=== PATIENT | female | born 1955 | race Asian ===

== ENCOUNTER 2017-08-22 22:15 | Observation (INO) ==
[2017-08-22] MEDS ORDERED: 0.9 % Sodium Chloride 1,000 ML IVC ONE ×2 (22:26→22:31)
[2017-08-22] MEDS ORDERED: Ondansetron 4 MG/2 ML VIAL IVP ONE (22:26)
[2017-08-22] MEDS ORDERED: Isovue-370 500 ML INFUS..BTL IV ONE (22:30)
--- NOTE | 2017-08-22 22:30 | Emergency Department Note ---
Disposition Clinical Impression: ARNULFO (acute kidney injury), Dehydration Syncope Qualifiers: Syncope type: unspecified Qualified Code(s): R55 - Syncope and collapse Nausea and vomiting Qualifiers: Vomiting type: unspecified Vomiting Intractability: non-intractable Qualified Code(s): R11.2 - Nausea with vomiting, unspecified Disposition: Admitted As Inpatient Condition: Undetermined Time of Disposition: 00:52 Syncope HPI - General Chief Complaint: ED Syncope Stated Complaint: vomiting,syncope Time Seen by Provider: 08/22/17 22:22 Source: patient Mode of arrival: ambulatory Limitations: no limitations Nursing Notes Reviewed: Yes Vital Signs Reviewed: Yes - History of Present Illness HPI Narrative: 62-year-old female with history of hypertension, hyperlipidemia, degenerative disc disease and history of hysterectomy, arrives to the emergency department with abdominal cramping, vomiting times multiple episodes after dinner and 3 separate syncopal episodes. The patient was brought in by family members. The patient is alert and oriented 3 upon arrival to the emergency department but she is noted to be hypotensive with a blood pressure of 88/55. The patient states she has never experience shaking like this in the past. Patient denies any diarrhea, hematochezia, melena, hematemesis. She denies any chest pain or difficulty breathing. He should states they are her abdominal cramping is diffuse without any specific location. The patient is diaphoretic upon arrival to the emergency department. She denies any other complaints at this time including fevers, chills, unilateral weakness. - Related Data Home Medications Medication Instructions Recorded Confirmed Lisinopril-HCTZ 10-12.5 [Prinzide 1 each PO DAILY 08/23/17 08/23/17 10-12.5] Pregabalin [Lyrica] 100 mg PO DAILY 08/23/17 08/23/17 Simvastatin [Zocor] 40 mg PO HS 08/23/17 08/23/17 Allergies Allergy/AdvReac Type Severity Reaction Status Date / Time No Known Allergies Allergy Verified 08/22/17 22:20 All systems ED: reviewed and negative except as stated. Constitutional: Reports: weakness. Denies: fever, chills ENT ED: Denies: congestion Cardiovascular: Reports: syncope. Denies: chest pain Respiratory: Denies: dyspnea Gastrointestinal: Reports: abdominal pain, nausea, vomiting. Denies: diarrhea, constipation, hematemesis, melena, hematochezia Genitourinary: Denies: urgency, dysuria Musculoskeletal: Denies: back pain, neck pain Integumentary: Denies: rash Neurological: Reports: weakness. Denies: headache, numbness, paresthesias, confusion, abnormal gait, vertigo Past Medical History - Past Medical History Attestation: Yes The following information was validated with the patient. 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 - Social History Smoking Status: Current every day smoker Smokeless Tobacco Status: No Alcohol use: Reports: none Drug use: Reports: none Physical Exam - General Limitations: no limitations General appearance: alert, in no apparent distress, other (diaphoretic) - Head Head exam: atraumatic, normocephalic, normal inspection - Eye Eye exam: Present: normal appearance, PERRL, EOMI - ENT ENT exam: normal exam, normal oropharynx, mucous membranes moist - Neck Neck exam: Present: normal inspection, full ROM, trachea midline - Chest Chest inspection: Present: normal inspection, symmetric chest wall rise - Respiratory Respiratory exam: Present: normal lung sounds bilaterally - Cardiovascular Cardiovascular exam: Present: regular rate, normal rhythm, normal heart sounds - Abdominal Exam Abdominal exam: Present: soft, tenderness (Diffuse), scar. Absent: distention, guarding, rebound, rigidity, psoas sign, obturator sign, Ingram's sign, Rovsing' s sign, tenderness at McBurney's Point, pulsatile mass Abdominal tenderness: Present: diffuse, moderate - Extremities Exam Extremities exam: Present: normal inspection, full ROM. Absent: tenderness, pedal edema - Neurological Exam Neurological exam: Present: alert, oriented X3 - Skin Skin exam: Present: warm, dry, intact, normal color Course Vital Signs Temperature 97.3 F L 08/22/17 22:18 Pulse Rate 64 08/22/17 22:18 Respiratory Rate 18 08/22/17 22:18 Blood Pressure 88/55 08/22/17 22:18 O2 Sat by Pulse Oximetry 99 08/22/17 22:18 Temperature 97.7 F 08/23/17 03:19 Pulse Rate 64 08/23/17 03:19 Respiratory Rate 16 08/23/17 01:29 Blood Pressure 94/59 08/23/17 03:19 O2 Sat by Pulse Oximetry 16 08/23/17 03:19 Oxygen Delivery Oxygen Delivery Room Air Procedures - Ultrasound-Other Narrative: Subxiphoid ultrasound of cardiac window was visualized. Small pericardial effusion noted. The cardiac movement was noted. Syncope - MDM Narrative Medical decision making narrative: Patient's workup in the emergency department demonstrates an acute kidney injury as well as elevated lactic acid. The patient is mildly hypotensive but her maps have been in the 70s. She is mentating appropriately. No sign of meningismus. The patient has no signs of urinary tract infection, chest x-ray is clear as well as CT scan of the abdomen and pelvis demonstrated no acute process. Patient has a leukocytosis noted on lab work as well. The patient states she is feeling better after receiving 1.5 L of IV fluids. Given the patient's continued mild hypotension combined with still feeling ill, we will admit the patient to the hospital at this time for further IV hydration and workup. Patient made aware and agrees to plan. In addition the patient does meet SIRS criteria but without a source this patient does not meet sepsis criteria and therefore we will not start antibiotics at this time. Accepted by Dr. Sandoval. - Lab Data Lab results reviewed: Yes I reviewed the patient's lab results. Result diagrams: 08/23/17 02:00 08/23/17 02:00 Lab Results 08/22/17 08/22/17 08/22/17 Range/Units 22:48 22:48 22:48 WBC 20.2 H (4.3-11.1) K/mcL RBC 4.68 (3.82-4.97) M/mcL Hgb 13.9 (11.5-15.4) g/dL Hct 41.9 (35.3-44.9) % MCV 89.5 (83.0-100.0) fL MCH 29.7 (28.0-33.3) pg MCHC 33.2 (31.6-35.5) g/dL RDW 14.6 H (11.5-14.5) % Plt Count 318 (140-400) K/mcL MPV 9.0 L (9.4-12.4) fL Immature Gran % 0.6 (0-4) % Seg Neutrophils % 79.4 % Lymphocytes % 13.7 % Monocytes % 5.5 % Eosinophils % 0.7 % Basophils % 0.1 % Neutrophils # 16.0 H (1.6-8.9) K/mcL Lymphocytes # 2.8 (0.6-4.6) K/mcL Monocytes # 1.1 (0.0-1.3) K/mcL Eosinophils # 0.2 (0.0-0.6) K/mcL Basophils # 0.0 (0.0-0.2) K/mcL Sodium 135 L (136-145) mEq/L Potassium 4.6 (3.5-5.1) mEq/L Chloride 98 (98-107) mEq/L Carbon Dioxide 27 (23-29) mEq/L BUN 41 H (8-23) mg/dL Creatinine 2.17 H (0.60-1.20) mg/dL Est GFR ( Amer) 28 L (> 60) Est GFR (Non-Af Amer) 23 L (> 60) BUN/Creatinine Ratio 19 (6-26) Glucose 153 H (70-105) mg/dL Calculated Osmolality 293 (280-300) Lactic Acid (0.5-2.2) mmol/L Calcium 9.5 (8.6-10.3) mg/dL Total Bilirubin 0.3 (0.3-1.0) mg/dL Direct Bilirubin 0.1 (0.0-0.2) mg/dL Indirect Bilirubin 0.2 (0.0-1.2) mg/dL AST 18 (13-39) Units/L ALT 14 (7-52) Units/L Alkaline Phosphatase 92 (34-104) Units/L Troponin I < 0.03 (< 0.04) ng/mL Serum Total Protein 7.0 (6.4-8.9) g/dL Albumin 4.2 (3.5-5.7) g/dL Globulin 2.8 (2.4-3.5) g/dL Albumin/Globulin Ratio 1.5 (1.1-2.2) Lipase 17 (11-82) Units/L Urine Color (Yellow) Urine Clarity (Clear) Urine pH (5.0-8.0) pH Units Ur Specific [place] (1.010-1.025) Urine Protein (Neg-Trace) mg/dL Urine Glucose (UA) (Normal) mg/dL Urine Ketones (Negative) mg/dL Urine Blood (Negative) Urine Nitrite (Negative) Urine Bilirubin (Negative) Urine Urobilinogen (Normal) mg/dL Ur Leukocyte Esterase (Negative) Urine Microscopic RBC (0-3) per hpf Urine Microscopic WBC (0-3) per hpf Ur Squamous Epith Cells (None-Few) per lpf Calcium Oxalate Crystal Urine Bacteria (None-Few) per hpf Hyaline Casts (None-Few) per lpf Ur Culture Indicated? (NO) 08/22/17 08/23/17 Range/Units 22:48 00:09 WBC (4.3-11.1) K/mcL RBC (3.82-4.97) M/mcL Hgb (11.5-15.4) g/dL Hct (35.3-44.9) % MCV (83.0-100.0) fL MCH (28.0-33.3) pg MCHC (31.6-35.5) g/dL RDW (11.5-14.5) % Plt Count (140-400) K/mcL MPV (9.4-12.4) fL Immature Gran % (0-4) % Seg Neutrophils % % Lymphocytes % % Monocytes % % Eosinophils % % Basophils % % Neutrophils # (1.6-8.9) K/mcL Lymphocytes # (0.6-4.6) K/mcL Monocytes # (0.0-1.3) K/mcL Eosinophils # (0.0-0.6) K/mcL Basophils # (0.0-0.2) K/mcL Sodium (136-145) mEq/L Potassium (3.5-5.1) mEq/L Chloride (98-107) mEq/L Carbon Dioxide (23-29) mEq/L BUN (8-23) mg/dL Creatinine (0.60-1.20) mg/dL Est GFR ( Amer) (> 60) Est GFR (Non-Af Amer) (> 60) BUN/Creatinine Ratio (6-26) Glucose (70-105) mg/dL Calculated Osmolality (280-300) Lactic Acid 2.6 H (0.5-2.2) mmol/L Calcium (8.6-10.3) mg/dL Total Bilirubin (0.3-1.0) mg/dL Direct Bilirubin (0.0-0.2) mg/dL Indirect Bilirubin (0.0-1.2) mg/dL AST (13-39) Units/L ALT (7-52) Units/L Alkaline Phosphatase (34-104) Units/L Troponin I (< 0.04) ng/mL Serum Total Protein (6.4-8.9) g/dL Albumin (3.5-5.7) g/dL Globulin (2.4-3.5) g/dL Albumin/Globulin Ratio (1.1-2.2) Lipase (11-82) Units/L Urine Color Yellow (Yellow) Urine Clarity Cloudy A (Clear) Urine pH 5.5 (5.0-8.0) pH Units Ur Specific [place] 1.022 (1.010-1.025) Urine Protein Trace (Neg-Trace) mg/dL Urine Glucose (UA) Normal (Normal) mg/dL Urine Ketones Negative (Negative) mg/dL Urine Blood Negative (Negative) Urine Nitrite Negative (Negative) Urine Bilirubin Small H (Negative) Urine Urobilinogen Normal (Normal) mg/dL Ur Leukocyte Esterase Negative (Negative) Urine Microscopic RBC 0-3 (0-3) per hpf Urine Microscopic WBC 5-15 H (0-3) per hpf Ur Squamous Epith Cells Many H (None-Few) per lpf Calcium Oxalate Crystal Present Urine Bacteria Few (None-Few) per hpf Hyaline Casts Many H (None-Few) per lpf Ur Culture Indicated? NO (NO) - Radiology Data Radiology results reviewed: Yes I reviewed the patient's radiology results. Abdomen/Pelvis CT 08/22/17 22:30 IMPRESSION: No acute abnormality detected. D/ / Ihsan Mcclellan MD / Ihsan Mcclellan MD Interpreting Provider: Ihsan Mcclellan MD Chest X-Ray 08/22/17 22:34 IMPRESSION: No acute disease. D/ / Milton Staples MD / Milton Staples MD Interpreting Provider: Milton Staples MD - EKG Data EKG attestation: Yes I reviewed and interpreted this EKG. EKG results narrative: Heart rate 55 beats for minute. Sinus bradycardia. No ST elevation or ST depression noted. New bradycardia noted but there is some nonspecific ST changes and T wave changes that are different from EKG from 02/18/2014. No other acute changes noted. Attestation Statement - Attestation Attestation: I examined this patient and my medical decision-making was reviewed with the Resident Physician. I agree with the documented findings, disposition and treatment plan as described except to the extent set forth below. Findings consistent with SIRS. I do suspect some degree of dehydration. There is no infectious source at this time. I would obtain cultures in the event her symptoms represent early infection. Plans to admit with IV fluids, discussed case with hospitalist team.
[2017-08-22 23:12] LABS: Basophils % 0.1 %; Eosinophils # 0.2 K/mcL (0.0-0.6); Eosinophils % 0.7 %; Hematocrit 41.9 % (35.3-44.9); Hemoglobin 13.9 g/dL (11.5-15.4); Immature Granulocytes % 0.6 % (0-4); Lymphocytes # 2.8 K/mcL (0.6-4.6); Lymphocytes % 13.7 %; Mean Corpuscular HGB Conc 33.2 g/dL (31.6-35.5); Mean Corpuscular Hemoglobin 29.7 pg (28.0-33.3); Mean Corpuscular Volume 89.5 fL (83.0-100.0); Monocytes # 1.1 K/mcL (0.0-1.3); Monocytes % 5.5 %; Platelet Count 318 K/mcL (140-400); Red Blood Count 4.68 M/mcL (3.82-4.97); Red Cell Distribution Width 14.6 % (11.5-14.5); Segmented Neutrophils % 79.4 %
[2017-08-22 23:25] LABS: Albumin 4.2 g/dL (3.5-5.7); Albumin/Globulin Ratio 1.5 (1.1-2.2); Bilirubin,Direct 0.1 mg/dL (0.0-0.2); Bilirubin,Indirect 0.2 mg/dL (0.0-1.2); Bilirubin,Total 0.3 mg/dL (0.3-1.0); Globulin 2.8 g/dL (2.4-3.5)
[2017-08-22 23:27] LABS: BUN/Creatinine Ratio 19 (6-26); Blood Urea Nitrogen 41 mg/dL (8-23); Calcium 9.5 mg/dL (8.6-10.3); Carbon Dioxide 27 mEq/L (23-29); Chloride 98 mEq/L (98-107); Glucose 153 mg/dL (70-105); Lipase 17 Units/L (11-82); Osmolality,Calculated 293 (280-300); Potassium 4.6 mEq/L (3.5-5.1); Sodium 135 mEq/L (136-145); eGFR For African Americans 28 (> 60); eGFR For Non-African Americans 23 (> 60)
[2017-08-22 23:28] LABS: Troponin I < 0.03 ng/mL (< 0.04)
[2017-08-23 00:30] LABS: Bilirubin,Urine Small (Negative); Blood,Urine Negative (Negative); Clarity,Urine Cloudy (Clear); Color,Urine Yellow (Yellow); Glucose,Urine (UA) Normal (Normal); Ketones,Urine Negative (Negative); Leukocyte Esterase,Urine Negative (Negative); Nitrite,Urine Negative (Negative); PH,Urine 5.5 pH Units (5.0-8.0); Protein,Urine Trace mg/dL (Neg-Trace); Specific Gravity,Urine 1.022 (1.010-1.025); Urobilinogen,Urine Normal (Normal)
[2017-08-23 00:33] LABS: Bacteria,Urine Few per hpf (None-Few); RBC,Urine 0-3 per hpf (0-3); Squamous Epithelial Cell,Urine Many per lpf (None-Few)
[2017-08-23 00:42] LABS: Hyaline Casts,Urine Many per lpf (None-Few)
[2017-08-23 00:43] LABS: Calcium Oxalate Crystals,Urine Present
--- NOTE | 2017-08-23 01:14 | Internal Med History&Physical ---
Date of Encounter: 08/23/17 Time of Encounter: 01:13 Internal Medicine - H&P: HPI Plans for Post Hospital Care: Home History of present illness: Ms. Rodriguez is a 62 year old female with PMH of HTN, HLD, degenerative disc disease, arthritis who presents to the emergency department for abdominal cramping, vomiting, and 3 syncopal episodes. Patient's abdomen began cramping this morning after breakfast. Abdominal cramping described as diffuse and occurring intermittently; nothing makes the abdominal cramping worse. Her vomiting began after eating dinner at 19:00; she had 3-4 episodes of "more" emesis. No bright red blood or coffee-ground appearance to the emesis. No other family members became sick after eating the same dinner. Patient blacked out 3 times, these episodes were witnessed by her who is not in the room at the time of my interview. She denies unilateral weakness, slurred speech, facial droop before passing out. Patient admits to alternating fevers/ chills x 1 day, one episode of watery "orange" diarrhea yesterday, and muscle spasm-like sensation in left chest that resolved on its own. Patient denies experiencing night sweats, diaphoresis, shortness of breath, coughing, wheezing , dysuria, hematuria, pyuria. When patient arrived in the ED she was hypotensive with BP 88/55, diaphoretic, afebrile. Initial workup in the ED included lab work notable for WBC 20.2, BUN 41, creatinine 2.17, lactic acid 2.6, troponin < 0.03, liver enzymes WNL. Urinalysis not suggestive of infection. CXR showed no acute findings. CT abdomen/pelvis noncontrast showed no acute abnormalities. In the emergency department she received 2 normal saline boluses. Patient admitted to hospitalist service for further care in correcting her dehydration and monitoring renal function. Past Med Surg Social Fam HX - Past Medical History Medical history: hyperlipidemia, hypertension Psychiatric history: no psych history - Past Surgical History Surgical History: hysterectomy - Social History Smoking Status: Current every day smoker Smokeless Tobacco Status: No Alcohol use: none Drug use: none - Family History Mother History Unknown: Yes Adopted: [place]: karine Age: 82 Family Member Ethnicity: Living Status: Still Living Hx Family Cardiac Disorders: Yes Hx Family Respiratory Disorders: No Hx Family Cancer: Yes Hx Family GI Disorders: No Hx Family Genitourinary Disorders: (incontinence) Hx Family Endocrine Disorder: No Hx Family Musculoskeletal Disorders: No Hx Family Neuromuscular Disorders: No Hx Family Neurologic Disorders: No Hx Family HEENT Disorders: No Hx Family Autoimmune Disorders: No Hx Family Reproductive Disorders: No Hx Family Psychosocial Disorders: No Hx Family Medical Disorders: No Internal Medicine - H&P: Meds Lisinopril-HCTZ 10-12.5 [Prinzide 10-12.5] 1 each PO DAILY 08/23/17 [History] Pregabalin [Lyrica] 150 mg PO TID 08/23/17 [History] Simvastatin [Zocor] 40 mg PO HS 08/23/17 [History] 3 Allergy/AdvReac Type Severity Reaction Status Date / Time No Known Allergies Allergy Verified 08/23/17 08:49 All Systems PM: A 10-system review of systems was performed and is negative for pertinent findings except as documented above in the HPI. - Constitutional Constitutional: as per HPI - EENT Eyes: blurry vision (before syncope, now resolved) - Cardiovascular Cardiovascular ROS IM: no chest pain, no dyspnea, no edema - Respiratory Respiratory: as per HPI, no cough, no wheezing - Gastrointestinal Gastrointestinal: as per HPI, nausea - Genitourinary Genitourinary: no difficulty urinating, no dysuria, no hematuria - Musculoskeletal Musculoskeletal ROS IM: as per HPI, back pain (Chronic, degenerative disc disease) - Neurological Neurological ROS: as per HPI, other (Lightheadedness), no abnormal speech, no behavioral changes, no dizziness, no focal weakness, no headache(s), no loss of vision - Constitutional Vitals: Temp Pulse Resp BP Pulse Ox 97.3 F L 61 18 97/55 93 08/23/17 00:21 08/23/17 00:40 08/23/17 01:09 08/23/17 01:09 08/23/17 00:40 General appearance: Present: A&O X 3, no acute distress, obese, answers questions appropriately - Head Head exam: Present: atraumatic, normal inspection, normocephalic - Eye Eye exam: Present: normal appearance, PERRL Pupils: Present: PERRL - Neck Neck exam general surgery: Present: supple, trachea midline - Respiratory Respiratory exam: Present: CTAB. Absent: rales, respiratory distress, rhonchi, wheezes - Cardiovascular Cardiovascular exam: Present: bradycardia (Regular rhythm), +S1, +S2 - GI/Abdominal GI/Abdominal exam: Present: normal bowel sounds, soft. Absent: distended, guarding, mass, rebound, rigid, tenderness - Extremities Exam Extremities exam: Present: normal inspection. Absent: calf tenderness, cyanotic , pedal edema, tenderness - Neurological Exam Neurological exam: Present: alert, CN II-XII intact, oriented X3, no focal deficits. Absent: facial droop, speech deficit Additional comments: Moves all extremities spontaneously - Psychiatric Psychiatric exam: Present: normal affect, normal mood - Skin Skin exam: Present: dry, warm. Absent: cyanosis, diaphoretic Internal Med - H&P Results - Labs CBC & Chem 7: 08/23/17 02:00 08/23/17 02:00 - Assessment and plan (1) SIRS (systemic inflammatory response syndrome) Current Visit: Yes Status: Acute Assessment and plan: SIRS criteria met on admission: lactic acid 2.7 and WBC 17.7 Criteria for sepsis not fulfilled because there is no source of infection: CXR negative for acute disease, no signs of UTI on urinalysis, CT abdomen/pelvis negative for acute abnormality Plan: Supportive care with isotonic IV fluids Trend WBC count Repeat lactic acid (2) ARNULFO (acute kidney injury) Current Visit: Yes Status: Acute Assessment and plan: Most likely pre-renal etiology in the setting of dehydration d/t nausea and vomiting; pt still producing urine Creatinine on admission of 2.17 Difficult to establish baseline creatinine, last measured in 2013 at 0.76 Plan: Continue isotonic IV fluids Trend renal function on BMP's Hold lisinopril-HCTZ for now while pt is hypotensive (3) Syncope Current Visit: Yes Status: Acute Assessment and plan: Vasovagal syncope d/t dehydration in setting of nausea and vomiting Plan: Continue supportive care with isotonic IV fluids Qualifiers: Syncope type: vasovagal syncope Qualified Code(s): R55 - Syncope and collapse (4) Dehydration Current Visit: Yes Status: Acute Assessment and plan: Due to volume loss in the setting of nausea and vomiting Plan: Supportive care with IV isotonic saline (5) Nausea and vomiting Current Visit: Yes Status: Acute Assessment and plan: Improved Plan: Sublingual zofran PRN NPO for now d/t vomiting Supportive care Qualifiers: Vomiting type: unspecified Vomiting Intractability: non-intractable Qualified Code(s): R11.2 - Nausea with vomiting, unspecified (6) Elevated lactic acid level Current Visit: Yes Status: Acute Assessment and plan: Lactic acid on admission of 2.6 Consistent with dehydration Expect this level will improve as kidney function recovers and as dehydration is corrected Plan: Recheck with next lab draw (7) Abdominal cramping, generalized Current Visit: Yes Status: Resolved (8) Hypertension Current Visit: No Status: Acute Assessment and plan: Hx of HTN managed with lisinopril-HCTZ at home Pt has been hypotensive this admission Plan: Hold home med Qualifiers: Hypertension type: unspecified Qualified Code(s): I10 - Essential (primary ) hypertension (9) Leukocytosis Current Visit: Yes Status: Acute Assessment and plan: Present on admission, WBC 20.2 Most likely reactive in nature No infectious source at this time--no evidence of UTI, CXR and CT abdomen pelvis negative for acute abnormalities Plan: Trend with CBC's Qualifiers: Leukocytosis type: unspecified Qualified Code(s): D72.829 - Elevated white blood cell count, unspecified (10) Hyperlipidemia Current Visit: Yes Status: Acute Assessment and plan: Continue home med simvastatin Qualifiers: Hyperlipidemia type: unspecified Qualified Code(s): E78.5 - Hyperlipidemia , unspecified (11) DVT prophylaxis Current Visit: Yes Status: Acute Assessment and plan: heparin 5,000 units subQ Q12H - Time Spent With Patient Total time spent is greater than 50% in coordination of care (as documented) at patient's floor/unit and/or counseling patient:
[2017-08-23 02:15] LABS: Basophils % 0.2 %; Eosinophils % 0.1 %; Immature Granulocytes % 0.5 % (0-4); Lymphocytes # 1.4 K/mcL (0.6-4.6); Lymphocytes % 7.7 %; Mean Corpuscular HGB Conc 33.3 g/dL (31.6-35.5); Mean Corpuscular Hemoglobin 29.7 pg (28.0-33.3); Monocytes # 0.7 K/mcL (0.0-1.3); Monocytes % 4.1 %; Neutrophils # 15.5 K/mcL (1.6-8.9); Platelet Count 266 K/mcL (140-400); Red Blood Count 4.38 M/mcL (3.82-4.97); Red Cell Distribution Width 14.6 % (11.5-14.5); Segmented Neutrophils % 87.4 %
[2017-08-23 02:34] LABS: Calcium 8.7 mg/dL (8.6-10.3); Potassium 4.1 mEq/L (3.5-5.1)
[2017-08-23] MEDS ORDERED: Ondansetron ODT 4 MG TAB.RAPDIS SL PRN (03:21)
[2017-08-23] MEDS ORDERED: 0.9 % Sodium Chloride 1,000 ML IVC SCH (03:30)
[2017-08-23] MEDS: *HR* Heparin 5,000 UNIT/ML VIAL SQ SCH ×2 (06:11→17:23)
[2017-08-23] MEDS ORDERED: Pantoprazole 40 MG VIAL IVP SCH (06:30)
[2017-08-23] MEDS: 0.9 % Sodium Chloride 1,000 ML IVC SCH ×2 (14:27→20:59)
[2017-08-23] MEDS ORDERED: Pregabalin 75 MG CAPSULE PO SCH (15:00)
--- NOTE | 2017-08-23 16:41 | Electrocardiograph Report ---
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
--- NOTE | 2017-08-23 17:52 | Event Note ---
Date of Encounter: 08/23/17 Time of Encounter: 17:07 S: Patient had no acute events since admission. She states that abdominal pain is greatly improved. No more nausea or vomiting. She denies any further syncopal episodes. She is tolerating diet without issues. She denies fever, chills, chest pain, and SOB. She has no complaints at this time. O: Gen - Awake, alert, oriented, no acute distress HEENT - NCAT, PERRLA, EOMI, hearing grossly intact, oropharynx benign CV - RRR, normal S1 and S2, no M/R/G, no BLE edema Resp - Normal WOB, CTAB, no W/R/R GI - Soft, NT/ND, no masses, normal bowel sounds, no HSP Skin - Warm, dry, no cyanosis, no rash, no ulcer, no lesions Psych - Normal mood and affect, no depression or anxiety A/P: 1) Abdominal Pain/Nausea/Vomiting - Start omeprazole tomorrow. Continue zofran PRN. Continue cardiac diet. 2) ARNULFO - BP improving. Continue IV NS at 125 ml/hr. Recheck BMP in AM. 3) Hypotension - Resolved. IVF as per above. Likely secondary to dehydration. Likely the cause for syncope. 4) Syncope - Resolved. No further episodes.
[2017-08-23] MEDS: Pregabalin 75 MG CAPSULE PO SCH (20:59)
[2017-08-24 03:51] LABS: Calcium 8.3 mg/dL (8.6-10.3); Potassium 4.4 mEq/L (3.5-5.1)
[2017-08-24 03:55] LABS: Basophils % 0.3 %; Eosinophils # 0.1 K/mcL (0.0-0.6); Eosinophils % 1.3 %; Hematocrit 35.3 % (35.3-44.9); Hemoglobin 11.5 g/dL (11.5-15.4); Immature Granulocytes % 0.1 % (0-4); Lymphocytes % 38.8 %; Mean Corpuscular HGB Conc 32.6 g/dL (31.6-35.5); Mean Corpuscular Hemoglobin 29.4 pg (28.0-33.3); Mean Corpuscular Volume 90.3 fL (83.0-100.0); Mean Platelet Volume 9.1 fL (9.4-12.4); Monocytes # 0.6 K/mcL (0.0-1.3); Monocytes % 7.2 %; Platelet Count 239 K/mcL (140-400); Red Blood Count 3.91 M/mcL (3.82-4.97); Red Cell Distribution Width 14.6 % (11.5-14.5); Segmented Neutrophils % 52.3 %
[2017-08-24] MEDS: 0.9 % Sodium Chloride 1,000 ML IVC SCH (05:00)
[2017-08-24] MEDS: *HR* Heparin 5,000 UNIT/ML VIAL SQ SCH (06:00)
[2017-08-24] MEDS: Pregabalin 75 MG CAPSULE PO SCH (07:48)
[2017-08-24 11:04] VITALS: BP 165/89
--- NOTE | 2017-08-24 11:34 | Discharge Summary ---
- NOTES TO OUTPATIENT PROVIDER Notes to Outpatient Provider: Follow up with PCP in 2-3 days after discharge. Recheck BMP (ARNULFO) and CBC at that time. Recheck blood pressure (hypotension and syncope) at that time. Date of Encounter: 08/24/17 Time of Encounter: 11:32 - Discharge Diagnosis (1) Syncope Priority: Primary Status: Resolved Qualifiers: Syncope type: vasovagal syncope Qualified Code(s): R55 - Syncope and collapse (2) ARNULFO (acute kidney injury) Priority: Secondary Status: Resolved (3) Dehydration Priority: Secondary Status: Resolved (4) Elevated lactic acid level Priority: Secondary Status: Resolved (5) Leukocytosis Priority: Secondary Status: Resolved Qualifiers: Leukocytosis type: unspecified Qualified Code(s): D72.829 - Elevated white blood cell count, unspecified (6) Hyperlipidemia Priority: Secondary Status: Chronic Qualifiers: Hyperlipidemia type: unspecified Qualified Code(s): E78.5 - Hyperlipidemia , unspecified (7) Nausea and vomiting Priority: Secondary Status: Resolved Qualifiers: Vomiting type: unspecified Vomiting Intractability: non-intractable Qualified Code(s): R11.2 - Nausea with vomiting, unspecified (8) SIRS (systemic inflammatory response syndrome) Priority: Secondary Status: Resolved (9) Abdominal cramping, generalized Priority: Secondary Status: Resolved (10) Hypertension Priority: Secondary Status: Chronic Qualifiers: Hypertension type: unspecified Qualified Code(s): I10 - Essential (primary ) hypertension (11) DVT prophylaxis Priority: Secondary Status: Acute Hospital course: Ms. Rodriguez is a 62 year old female admitted for syncope likely secondary to dehydration/hypotension. She also had abdominal pain, nausea, and vomiting, which likely precipitated the dehydration. She had ARNULFO on admission. She was admitted to general medical floor with telemetry. IVF were continued. She was started on IV PPI. Home zestoretic was held. Abdominal pain/nausea/vomiting resolved the next day. BP improved the next day. She is borderline hypertensive today, so will restart home zestoretic at discharge. ARNULFO resolved on day of discharge. She is tolerating full diet without any issues. She had no further syncopal episodes since admission. Patient states that she wants to go home. She will follow up with PCP in 2-3 days after discharge. They can recheck BMP (ARNULFO) and CBC at that time. They can also recheck blood pressure ( hypotension and syncope) at that time. Patient has met maximum benefit of this hospitalization and will be discharged home in stable condition. Discharge discussed with: patient, nurse, other (Pharmacist) - Time Spent with Patient Total time spent providing and/or coordinating discharge services: Less than 30 minutes - Discharge Medications Prescriptions: Omeprazole [PriLOSEC] 40 mg PO DAILY 7 Days #7 cap Home Medications: Lisinopril-HCTZ 10-12.5 [Prinzide 10-12.5] 1 each PO DAILY 08/23/17 [History] Pregabalin [Lyrica] 150 mg PO TID 08/23/17 [History] Simvastatin [Zocor] 40 mg PO HS 08/23/17 [History] Omeprazole [PriLOSEC] 40 mg PO DAILY 7 Days #7 cap 08/24/17 [Rx] Allergies/Adverse Reactions: 3 Allergy/AdvReac Type Severity Reaction Status Date / Time No Known Allergies Allergy Verified 08/23/17 08:49 Date of admission: 08/23/17 00:57 Primary care physician: Haley Summers CNP Consults: 08/23/17 01:48 Consult to [employer] [CONS] Routine Reason for SW Consult: financial Discharging clinician: Stephan Nolasco Anticipated date of discharge: 08/24/17 - Constitutional Vitals: Temp Pulse Resp BP Pulse Ox 98.8 F 60 18 165/89 96 08/24/17 11:00 08/24/17 11:00 08/24/17 11:00 08/24/17 11:00 08/24/17 11:00 General appearance: Present: cooperative, A&O X 3, pleasant, no acute distress, obese, answers questions appropriately - Respiratory Respiratory exam: Present: CTAB. Absent: accessory muscle use, rales, rhonchi, wheezes Additional comments: Normal WOB - Cardiovascular Cardiovascular exam: Present: RRR, +S1, +S2. Absent: diastolic murmur, gallop, rubs, systolic murmur Additional comments: No BLE edema - GI/Abdominal GI/Abdominal exam: Present: normal bowel sounds, soft. Absent: distended, hepatomegaly, mass, splenomegaly, tenderness - Psychiatric Psychiatric exam: Present: normal affect, normal mood. Absent: agitated, anxious, depressed - Skin Skin exam: Present: dry, intact, warm. Absent: cyanosis, rash - Patient Status Disposition: Home, Self-Care Condition: Good Functional capacity at discharge: independent ambulation Overall status at discharge: patient is progressing back to baseline - Discharge Instructions Follow Up With: Haley Summers CNP [Primary Care Provider] - 08/31/17 9:30 am Additional Instructions: Follow up with PCP in 2-3 days after discharge. Recheck BMP (ARNULFO) and CBC at that time. Recheck blood pressure (hypotension and syncope) at that time. - Diet and Activity Activity: resume usual activities as tolerated Diet: low fat, low cholesterol, low salt diet, other (Cardiac Diet)
== END 2017-08-24 13:36 | disposition home or self-care (01) ==
LOC: 2NNU 22:15 → EMEROO 22:15 → 2NNU 08-23 01:14
PROVIDERS: ADMIT Internal Medicine; ATTEND Internal Medicine

== ENCOUNTER 2018-12-23 21:39 | Observation (INO) ==
[2018-12-23] MEDS ORDERED: 0.9 % Sodium Chloride 1,000 ML IVC ONE (22:07)
[2018-12-23 22:55] LABS: Basophils % 0.2 %; Eosinophils # 0.2 K/mcL (0.0-0.6); Eosinophils % 0.8 %; Hematocrit 45.9 % (35.3-44.9); Hemoglobin 15.8 g/dL (11.5-15.4); Immature Granulocytes % 0.9 % (0-4); Lymphocytes # 1.6 K/mcL (0.6-4.6); Lymphocytes % 8.3 %; Mean Corpuscular HGB Conc 34.4 g/dL (31.6-35.5); Mean Corpuscular Hemoglobin 30.9 pg (28.0-33.3); Mean Corpuscular Volume 89.8 fL (83.0-100.0); Mean Platelet Volume 8.9 fL (9.4-12.4); Monocytes # 1.3 K/mcL (0.0-1.3); Monocytes % 6.4 %; Neutrophils # 16.3 K/mcL (1.6-8.9); Platelet Count 300 K/mcL (140-400); Red Blood Count 5.11 M/mcL (3.82-4.97); Red Cell Distribution Width 13.8 % (11.5-14.5); Segmented Neutrophils % 83.4 %; White Blood Count 19.6 K/mcL (4.3-11.1)
[2018-12-23 23:19] LABS: Calcium 9.6 mg/dL (8.6-10.3); Potassium 3.2 mEq/L (3.5-5.1)
[2018-12-23 23:20] LABS: Troponin I 0.03 ng/mL (< 0.04)
[2018-12-23] MEDS ORDERED: Potassium Chloride Elixir 20 MEQ/15 ML UDC PO ONE (23:23)
[2018-12-24 00:09] LABS: Bilirubin,Urine Negative (Negative); Blood,Urine Trace (Negative); Clarity,Urine Cloudy (Clear); Color,Urine Yellow (Yellow); Glucose,Urine (UA) Normal (Normal); Ketones,Urine Negative (Negative); Leukocyte Esterase,Urine Negative (Negative); Nitrite,Urine Negative (Negative); PH,Urine 6.5 pH Units (5.0-8.0); Protein,Urine 30 mg/dL (Neg-Trace); Urobilinogen,Urine Normal (Normal)
[2018-12-24 00:20] LABS: Bacteria,Urine Many per hpf (None-Few); Squamous Epithelial Cell,Urine Few per lpf (None-Few); WBC,Urine 0-3 per hpf (0-3)
[2018-12-24] MEDS ORDERED: Naloxone 0.4 MG/ML INJ IVP PRN (02:08)
[2018-12-24] MEDS ORDERED: Ondansetron 4 MG/2 ML VIAL IVP PRN (02:08)
[2018-12-24] MEDS ORDERED: 0.9 % Sodium Chloride 1,000 ML IVC SCH (02:15)
[2018-12-24 02:46] LABS: Basophils % 0.2 %; Eosinophils % 0.3 %; Hematocrit 38.8 % (35.3-44.9); Immature Granulocytes % 0.5 % (0-4); Lymphocytes # 1.4 K/mcL (0.6-4.6); Lymphocytes % 9.7 %; Mean Corpuscular HGB Conc 36.1 g/dL (31.6-35.5); Mean Corpuscular Volume 85.8 fL (83.0-100.0); Monocytes # 0.6 K/mcL (0.0-1.3); Monocytes % 4.4 %; Neutrophils # 12.3 K/mcL (1.6-8.9); Platelet Count 255 K/mcL (140-400); Red Blood Count 4.52 M/mcL (3.82-4.97); Red Cell Distribution Width 13.9 % (11.5-14.5); Segmented Neutrophils % 84.9 %; White Blood Count 14.4 K/mcL (4.3-11.1)
[2018-12-24 02:48] LABS: Prothrombin Time 10.9 Seconds (9.4-12.1)
[2018-12-24 02:51] LABS: Activated Partial Thrombo Time 30.9 Seconds (26.0-36.0)
[2018-12-24 03:00] LABS: Albumin 3.9 g/dL (3.5-5.7); Albumin/Globulin Ratio 1.7 (1.1-2.2); Bilirubin,Total 0.3 mg/dL (0.3-1.0); Calcium 8.6 mg/dL (8.6-10.3); Globulin 2.3 g/dL (2.4-3.5); Magnesium 2.2 mg/dL (1.6-2.6); Potassium 3.9 mEq/L (3.5-5.1); Total Protein 6.2 g/dL (6.4-8.9)
[2018-12-24] MEDS: 0.9 % Sodium Chloride 1,000 ML IVC SCH ×2 (06:44→15:14)
[2018-12-24] MEDS: *HR* Heparin 5,000 UNIT/ML VIAL SQ SCH ×2 (15:14→20:56)
[2018-12-24] MEDS: Pregabalin 75 MG CAPSULE PO SCH (20:56)
[2018-12-24 20:57] LABS: Sodium, Urine 63.6 mEq/L
[2018-12-24 21:01] LABS: Protein/Creatinine Ratio,Urine 0.09 mg/mg (0.00-0.20)
[2018-12-25] MEDS: *HR* Heparin 5,000 UNIT/ML VIAL SQ SCH (05:56)
[2018-12-25 06:45] LABS: Basophils % 0.4 %; Eosinophils # 0.1 K/mcL (0.0-0.6); Eosinophils % 1.8 %; Hematocrit 38.4 % (35.3-44.9); Hemoglobin 13.1 g/dL (11.5-15.4); Immature Granulocytes % 0.5 % (0-4); Lymphocytes # 1.9 K/mcL (0.6-4.6); Mean Corpuscular HGB Conc 34.1 g/dL (31.6-35.5); Mean Corpuscular Hemoglobin 30.3 pg (28.0-33.3); Mean Corpuscular Volume 88.7 fL (83.0-100.0); Mean Platelet Volume 9.1 fL (9.4-12.4); Monocytes # 0.4 K/mcL (0.0-1.3); Monocytes % 7.7 %; Neutrophils # 3.2 K/mcL (1.6-8.9); Platelet Count 258 K/mcL (140-400); Red Blood Count 4.33 M/mcL (3.82-4.97); Red Cell Distribution Width 14.3 % (11.5-14.5); Segmented Neutrophils % 56.6 %
[2018-12-25 06:47] LABS: White Blood Count 5.7 K/mcL (4.3-11.1)
[2018-12-25 07:02] LABS: BUN/Creatinine Ratio 22 (6-26); Blood Urea Nitrogen 23 mg/dL (8-23); Calcium 8.5 mg/dL (8.6-10.3); Carbon Dioxide 25 mEq/L (23-29); Chloride 106 mEq/L (98-107); Glucose 94 mg/dL (70-105); Osmolality,Calculated 289 (280-300); Potassium 4.4 mEq/L (3.5-5.1); Sodium 138 mEq/L (136-145); eGFR For African Americans > 60 (> 60); eGFR For Non-African Americans 54 (> 60)
[2018-12-25] MEDS: Pregabalin 75 MG CAPSULE PO SCH (07:40)
[2018-12-25 15:48] VITALS: BP 134/71
== END 2018-12-25 17:07 | disposition home or self-care (01) ==
LOC: EMEROOARM 21:39 → CDU 21:39 → SUATTDRO 12-24 00:42 → CDU 12-24 00:44 → 2ANU 12-24 13:36
PROVIDERS: ADMIT Internal Medicine; ATTEND Internal Medicine